=== PATIENT | male | born 1930 | race Caucasian/White ===

== ENCOUNTER 2016-12-11 14:43 | Inpatient (IN) | payer OTHER, BC ==
[~2016-12-11] VITALS: Ht 185.4 cm; Wt 122.6 kg
[~2016-12-11 14:43] MED LIST: COLCHICINE,COL0.6 MG PO; DULCOLAX5 MG PO; K-DUR10 ME2 PO; LASIX40 MG PO; LEVOTHROID,SY0.05 MG PO; Oyst-Cal D, Oscal W/ PO; SENOKOT S,PE1 TABLET PO; THERAGRAN1 TABLET PO; TOPROL XL100 MG PO; Tylenol Regular Stre PO; Vicodin,Lortab 5/500 PO; ZOCOR20 MG PO
[2016-12-11 16:09] LABS: EOSINOPHIL (%) 1.8 % (0-5); EOSINOPHIL COUNT 0.2 K/uL (0-0.3); HEMATOCRIT 37.2 % (38.0-50.0); IMMATURE GRANULOCYTE (%) 0.7 % (0.0-0.7); IMMATURE GRANULOCYTE COUNT 0.1 K/uL; INSTRUMENT ABS NEUTROPHIL CT 7.5 K/uL; MCH 29.5 PG (29.0-34.0); MCHC 33.6 G/DL (30.0-36.0); MCV 87.7 FL (86-99); MEAN PLAT.VOLUME 10.6 uM^3 (9.0-12.4); MONOCYTE (%) 8.8 % (3-12); MONOCYTE COUNT 0.9 K/uL (0-0.8); NEUTROPHIL (%) 77.8 % (45-76); NEUTROPHIL COUNT 7.5 K/uL (1.8-6.4); PLATELET COUNT 191 K/uL (156-360); RBC DIS.WIDTH-CV 14.3 % (11.8-14.6); RBC DIS.WIDTH-SD 45.6 % (39-53); RED BLOOD COUNT 4.24 M/uL (4.00-5.50); WHITE BLOOD COUNT 9.7 K/uL (4.1-10.2)
[2016-12-11 16:13] LABS: ADD MIUA? YES; BILIRUBIN NEGATIVE; BLOOD MODERATE; COLOR YELLOW ((YELLOW)); GLUCOSE (STRIP) NEGATIVE; KETONES NEGATIVE; LEUKOCYTES LARGE; NITRITE NEGATIVE; PROTEIN (STRIP) NEGATIVE; SPECIFIC GRAVITY 1.008 (1.000-1.030); UROBILINOGEN 0.2 MG/DL (0.2-1.0)
[2016-12-11 16:19] LABS: CHLORIDE 104 mEq/L (99-109); SODIUM 137 mEq/L (136-147)
[2016-12-11 16:20] LABS: GLUCOSE 108 mg/dL (70-99)
[2016-12-11 16:22] LABS: ANION GAP 16 MEQ/L (2-14)
[2016-12-11 16:24] LABS: GFR ESTIMATE (CALCULATED) 7 mL/min/
[2016-12-11 16:25] LABS: BACTERIA RARE /HPF; EPITHELIAL CELLS NONE SEEN /HPF; MUCUS NONE SEEN /LPF; RED BLOOD CELLS 30-40 /HPF (0-5); UNCLASSIFIED CRYSTALS 1+ /HPF; WHITE BLOOD CELLS TNTC /HPF (0-5)
[2016-12-11 16:28] LABS: UREA NITROGEN (BUN) 129 mg/dL (9-23)
[2016-12-11] MEDS ORDERED: LEVO-T50 MCG PO (17:37)
[2016-12-11] MEDS ORDERED: METOPROLOL SUC100 MG PO (17:37)
[2016-12-11] MEDS ORDERED: ZOCOR40 MG PO (17:38)
[2016-12-11] MEDS ORDERED: TYLENOL REGULA325 MG PO (17:38)
[2016-12-11] MEDS ORDERED: OYST-CAL-500500 MG PO (17:39)
[2016-12-11] MEDS ORDERED: K-DUR10 MEQ PO (17:45)
[2016-12-11] MEDS ORDERED: ALLOPURINOL100 MG PO (17:46)
[2016-12-11] MEDS ORDERED: VICODIN 5-3001 EACH PO (17:47)
[2016-12-11 20:21] VITALS: BP 126/56
[2016-12-12] VITALS: BP 121/56
[2016-12-12 03:38] VITALS: BP 98/58
[2016-12-12 07:13] LABS: HEMATOCRIT 35.4 % (38.0-50.0); MCH 30.2 PG (29.0-34.0); MCHC 33.1 G/DL (30.0-36.0); MCV 91.2 FL (86-99); MEAN PLAT.VOLUME 10.6 uM^3 (9.0-12.4); PLATELET COUNT 170 K/uL (156-360); RBC DIS.WIDTH-CV 14.3 % (11.8-14.6); RED BLOOD COUNT 3.88 M/uL (4.00-5.50); WHITE BLOOD COUNT 7.7 K/uL (4.1-10.2)
[2016-12-12 07:47] LABS: ANION GAP 17 MEQ/L (2-14); CHLORIDE 106 MEQ/L (99-109); GFR ESTIMATE (CALCULATED) 8 mL/min/; GLUCOSE 88 mg/dL (70-99); POTASSIUM 4.3 MEQ/L (3.7-5.4); SAMPLE HEMOLYSIS CHECK 0; SAMPLE ICTERIC CHECK 0; SAMPLE LIPEMIA CHECK 0; SODIUM 141 MEQ/L (136-147)
[2016-12-12 07:50] LABS: UREA NITROGEN (BUN) 124 mg/dL (9-23)
[2016-12-12 07:53] VITALS: BP 122/59
[2016-12-12 16:11] LABS: HEMATOCRIT 29.9 % (38.0-50.0); MCV 90.1 FL (86-99)
[2016-12-12 17:48] VITALS: BP 116/63
[2016-12-12 20:47] VITALS: BP 108/52
[2016-12-12 20:50] VITALS: BP 111/55
[2016-12-13 00:05] VITALS: BP 111/52
[2016-12-13 04:00] VITALS: BP 144/60
[2016-12-13 06:57] VITALS: BP 118/65
[2016-12-13 07:37] LABS: ANION GAP 11 MEQ/L (2-14); CHLORIDE 110 MEQ/L (99-109); GFR ESTIMATE (CALCULATED) 10 mL/min/; MAGNESIUM 2.1 mg/dl (1.3-2.7); POTASSIUM 3.9 MEQ/L (3.7-5.4); SAMPLE HEMOLYSIS CHECK 0; SAMPLE ICTERIC CHECK 0; SAMPLE LIPEMIA CHECK 0; SODIUM 143 MEQ/L (136-147); UREA NITROGEN (BUN) 100 mg/dL (9-23)
[2016-12-13 07:40] LABS: GLUCOSE 115 mg/dL (70-99)
[2016-12-13 10:10] VITALS: BP 132/63
[2016-12-13 13:26] LABS: EOSINOPHIL (%) 2.6 % (0-5); EOSINOPHIL COUNT 0.2 K/uL (0-0.3); HEMATOCRIT 26.3 % (38.0-50.0); IMMATURE GRANULOCYTE (%) 0.4 % (0.0-0.7); INSTRUMENT ABS NEUTROPHIL CT 5.7 K/uL; LYMPHOCYTE COUNT 1.1 K/uL (1.0-2.8); MCH 30.4 PG (29.0-34.0); MCHC 33.5 G/DL (30.0-36.0); MEAN PLAT.VOLUME 10.7 uM^3 (9.0-12.4); MONOCYTE (%) 8.5 % (3-12); MONOCYTE COUNT 0.7 K/uL (0-0.8); NEUTROPHIL (%) 73.3 % (45-76); NEUTROPHIL COUNT 5.7 K/uL (1.8-6.4); PLATELET COUNT 165 K/uL (156-360); RBC DIS.WIDTH-CV 14.3 % (11.8-14.6); RBC DIS.WIDTH-SD 46.3 % (39-53); RED BLOOD COUNT 2.89 M/uL (4.00-5.50); WHITE BLOOD COUNT 7.8 K/uL (4.1-10.2)
[2016-12-13 15:59] VITALS: BP 99/54
[2016-12-13 20:00] VITALS: BP 110/56
[2016-12-13 20:05] LABS: HEMATOCRIT 25.1 % (38.0-50.0)
[2016-12-14] VITALS (8 sets, daily range): BP systolic 91–111; BP diastolic 51–82
[2016-12-14 06:43] LABS: EOSINOPHIL (%) 3.7 % (0-5); EOSINOPHIL COUNT 0.3 K/uL (0-0.3); HEMATOCRIT 24.1 % (38.0-50.0); IMMATURE GRANULOCYTE (%) 0.7 % (0.0-0.7); IMMATURE GRANULOCYTE COUNT 0.1 K/uL; INSTRUMENT ABS NEUTROPHIL CT 4.6 K/uL; LYMPHOCYTE COUNT 1.2 K/uL (1.0-2.8); MCH 30.1 PG (29.0-34.0); MCHC 33.2 G/DL (30.0-36.0); MCV 90.6 FL (86-99); MEAN PLAT.VOLUME 10.5 uM^3 (9.0-12.4); MONOCYTE (%) 8.2 % (3-12); MONOCYTE COUNT 0.6 K/uL (0-0.8); NEUTROPHIL (%) 69.5 % (45-76); NEUTROPHIL COUNT 4.6 K/uL (1.8-6.4); PLATELET COUNT 160 K/uL (156-360); RBC DIS.WIDTH-CV 14.3 % (11.8-14.6); RED BLOOD COUNT 2.66 M/uL (4.00-5.50); WHITE BLOOD COUNT 6.7 K/uL (4.1-10.2)
[2016-12-14 07:04] LABS: ANION GAP 10 MEQ/L (2-14); CHLORIDE 112 MEQ/L (99-109); GFR ESTIMATE (CALCULATED) 15 mL/min/; GLUCOSE 122 mg/dL (70-99); POTASSIUM 3.9 MEQ/L (3.7-5.4); SAMPLE HEMOLYSIS CHECK 0; SAMPLE ICTERIC CHECK 0; SAMPLE LIPEMIA CHECK 0; SODIUM 145 MEQ/L (136-147); UREA NITROGEN (BUN) 88 mg/dL (9-23)
[2016-12-14 20:06] LABS: HEMATOCRIT 24.3 % (38.0-50.0); MCV 91.4 FL (86-99)
[2016-12-15 03:16] VITALS: BP 91/52
[2016-12-15 09:07] VITALS: BP 133/62
[2016-12-15 13:00] LABS: ANION GAP 11 MEQ/L (2-14); CHLORIDE 110 MEQ/L (99-109); GFR ESTIMATE (CALCULATED) 18 mL/min/; GLUCOSE 137 mg/dL (70-99); POTASSIUM 4.2 MEQ/L (3.7-5.4); SAMPLE HEMOLYSIS CHECK 0; SAMPLE ICTERIC CHECK 0; SAMPLE LIPEMIA CHECK 0; SODIUM 143 MEQ/L (136-147); UREA NITROGEN (BUN) 79 mg/dL (9-23)
[2016-12-15 17:28] VITALS: BP 124/57
[2016-12-15 19:17] VITALS: BP 128/58
[2016-12-15 23:31] VITALS: BP 118/64
[2016-12-16 03:59] VITALS: BP 115/55
[2016-12-16 07:34] LABS: ANION GAP 11 MEQ/L (2-14); CHLORIDE 111 MEQ/L (99-109); GFR ESTIMATE (CALCULATED) 20 mL/min/; GLUCOSE 113 mg/dL (70-99); POTASSIUM 3.9 MEQ/L (3.7-5.4); SAMPLE HEMOLYSIS CHECK 0; SAMPLE ICTERIC CHECK 0; SAMPLE LIPEMIA CHECK 0; SODIUM 143 MEQ/L (136-147); UREA NITROGEN (BUN) 76 mg/dL (9-23)
[2016-12-16 08:30] VITALS: BP 135/93
[2016-12-16 12:00] VITALS: BP 119/84
[2016-12-16 13:08] LABS: HEMATOCRIT 23.1 % (38.0-50.0)
[2016-12-16 17:34] VITALS: BP 126/60
[2016-12-17] VITALS (8 sets, daily range): BP systolic 96–115; BP diastolic 51–73
[2016-12-17 07:00] LABS: ANION GAP 10 MEQ/L (2-14); CHLORIDE 111 MEQ/L (99-109); GFR ESTIMATE (CALCULATED) 22 mL/min/; GLUCOSE 108 mg/dL (70-99); POTASSIUM 3.9 MEQ/L (3.7-5.4); SAMPLE HEMOLYSIS CHECK 0; SAMPLE ICTERIC CHECK 0; SAMPLE LIPEMIA CHECK 0; SODIUM 141 MEQ/L (136-147); UREA NITROGEN (BUN) 72 mg/dL (9-23)
[2016-12-18] VITALS (9 sets, daily range): BP systolic 91–119; BP diastolic 52–70
[2016-12-18 07:09] LABS: EOSINOPHIL (%) 2.8 % (0-5); EOSINOPHIL COUNT 0.2 K/uL (0-0.3); HEMATOCRIT 21.3 % (38.0-50.0); IMMATURE GRANULOCYTE COUNT 0.1 K/uL; INSTRUMENT ABS NEUTROPHIL CT 5.2 K/uL; LYMPHOCYTE COUNT 0.9 K/uL (1.0-2.8); MCH 30.2 PG (29.0-34.0); MCHC 32.9 G/DL (30.0-36.0); MCV 91.8 FL (86-99); MEAN PLAT.VOLUME 10.2 uM^3 (9.0-12.4); MONOCYTE COUNT 0.5 K/uL (0-0.8); NEUTROPHIL (%) 75.3 % (45-76); NEUTROPHIL COUNT 5.2 K/uL (1.8-6.4); PLATELET COUNT 144 K/uL (156-360); RBC DIS.WIDTH-CV 14.8 % (11.8-14.6); RBC DIS.WIDTH-SD 47.8 % (39-53); RED BLOOD COUNT 2.32 M/uL (4.00-5.50); WHITE BLOOD COUNT 6.8 K/uL (4.1-10.2)
[2016-12-18 07:41] LABS: ANION GAP 8 MEQ/L (2-14); CHLORIDE 112 MEQ/L (99-109); GFR ESTIMATE (CALCULATED) 28 mL/min/; GLUCOSE 112 mg/dL (70-99); MAGNESIUM 1.7 mg/dl (1.3-2.7); POTASSIUM 3.6 MEQ/L (3.7-5.4); SAMPLE HEMOLYSIS CHECK 0; SAMPLE ICTERIC CHECK 0; SAMPLE LIPEMIA CHECK 0; SODIUM 143 MEQ/L (136-147); UREA NITROGEN (BUN) 62 mg/dL (9-23)
[2016-12-19 00:21] VITALS: BP 119/55
[2016-12-19 06:35] LABS: EOSINOPHIL (%) 2.5 % (0-5); EOSINOPHIL COUNT 0.2 K/uL (0-0.3); HEMATOCRIT 23.4 % (38.0-50.0); IMMATURE GRANULOCYTE (%) 1.2 % (0.0-0.7); IMMATURE GRANULOCYTE COUNT 0.1 K/uL; INSTRUMENT ABS NEUTROPHIL CT 5.1 K/uL; MCH 30.6 PG (29.0-34.0); MCHC 32.9 G/DL (30.0-36.0); MCV 92.9 FL (86-99); MEAN PLAT.VOLUME 10.4 uM^3 (9.0-12.4); MONOCYTE (%) 7.2 % (3-12); MONOCYTE COUNT 0.5 K/uL (0-0.8); NEUTROPHIL (%) 73.7 % (45-76); NEUTROPHIL COUNT 5.1 K/uL (1.8-6.4); PLATELET COUNT 139 K/uL (156-360); RBC DIS.WIDTH-CV 15.4 % (11.8-14.6); RBC DIS.WIDTH-SD 50.1 % (39-53); RED BLOOD COUNT 2.52 M/uL (4.00-5.50); WHITE BLOOD COUNT 6.9 K/uL (4.1-10.2)
[2016-12-19 07:01] LABS: ANION GAP 9 MEQ/L (2-14); CHLORIDE 113 MEQ/L (99-109); GFR ESTIMATE (CALCULATED) 29 mL/min/; GLUCOSE 103 mg/dL (70-99); MAGNESIUM 1.7 mg/dl (1.3-2.7); POTASSIUM 3.9 MEQ/L (3.7-5.4); SAMPLE HEMOLYSIS CHECK 0; SAMPLE ICTERIC CHECK 0; SAMPLE LIPEMIA CHECK 0; SODIUM 142 MEQ/L (136-147); UREA NITROGEN (BUN) 56 mg/dL (9-23)
[2016-12-19 07:08] VITALS: BP 109/51
[2016-12-19 11:00] VITALS: BP 112/61
[2016-12-19 16:25] VITALS: BP 103/52
[2016-12-19 19:50] VITALS: BP 113/57
[2016-12-19 23:25] VITALS: BP 116/57
[2016-12-20 04:00] VITALS: BP 116/62
[2016-12-20 07:11] VITALS: BP 112/52
[2016-12-20 09:18] LABS: EOSINOPHIL (%) 2.7 % (0-5); EOSINOPHIL COUNT 0.2 K/uL (0-0.3); HEMATOCRIT 26.9 % (38.0-50.0); IMMATURE GRANULOCYTE (%) 0.7 % (0.0-0.7); IMMATURE GRANULOCYTE COUNT 0.1 K/uL; INSTRUMENT ABS NEUTROPHIL CT 6.4 K/uL; LYMPHOCYTE COUNT 0.9 K/uL (1.0-2.8); MCH 29.7 PG (29.0-34.0); MCHC 31.6 G/DL (30.0-36.0); MCV 94.1 FL (86-99); MEAN PLAT.VOLUME 9.9 uM^3 (9.0-12.4); MONOCYTE (%) 5.9 % (3-12); MONOCYTE COUNT 0.5 K/uL (0-0.8); NEUTROPHIL (%) 79.3 % (45-76); NEUTROPHIL COUNT 6.4 K/uL (1.8-6.4); PLATELET COUNT 193 K/uL (156-360); RBC DIS.WIDTH-CV 15.8 % (11.8-14.6); RBC DIS.WIDTH-SD 50.8 % (39-53); RED BLOOD COUNT 2.86 M/uL (4.00-5.50)
[2016-12-20 09:36] LABS: ANION GAP 5 MEQ/L (2-14); CHLORIDE 109 MEQ/L (99-109); GFR ESTIMATE (CALCULATED) 29 mL/min/; GLUCOSE 148 mg/dL (70-99); POTASSIUM 4.1 MEQ/L (3.7-5.4); SAMPLE HEMOLYSIS CHECK 0; SAMPLE ICTERIC CHECK 0; SAMPLE LIPEMIA CHECK 0; SODIUM 141 MEQ/L (136-147); UREA NITROGEN (BUN) 48 mg/dL (9-23)
[2016-12-20 10:40] VITALS: BP 113/57
[2016-12-20] MEDS ORDERED: METOPROLOL SUCC25 MG PO (11:20)
[2016-12-20] MEDS ORDERED: TAMSULOSIN HCL0.4 MG PO (11:20)
[2016-12-20] MEDS ORDERED: HYDROCODON-ACE1 EAC7 PO (11:22)
[2016-12-20 16:12] VITALS: BP 104/54
== END 2016-12-20 18:25 | DRG 683 ==
LOC: EME 14:43 → 5EAST 16:48 → EDOF 16:48 → 5EAST 19:44
PROVIDERS: Emergency Medicine; Internal Medicine; Internal Medicine Nephrology
PROC: 0T9B70Z Drainage of Bladder with Drainage Device, Via Natural or Artificial Opening (ICD-10-PCS; principal; 2016-12-12)
PROC: 3E1K78Z Irrigation of Genitourinary Tract using Irrigating Substance, Via Natural or Artificial Opening (ICD-10-PCS; principal; 2016-12-12)
PROC: 30233N1 Transfusion of Nonautologous Red Blood Cells into Peripheral Vein, Percutaneous Approach (ICD-10-PCS; 2016-12-17)
DX: N17.0 Acute kidney failure with tubular necrosis (principal); D62 Acute posthemorrhagic anemia; I12.9 Hypertensive chronic kidney disease with stage 1 through stage 4 chronic kidney disease, or unspecified chronic kidney disease; N18.3 Chronic kidney disease, stage 3 (moderate); N39.0 Urinary tract infection, site not specified; R31.0 Gross hematuria; N40.1 Benign prostatic hyperplasia with lower urinary tract symptoms; R33.8 Other retention of urine; N13.30 Unspecified hydronephrosis; N13.8 Other obstructive and reflux uropathy; N32.89 Other specified disorders of bladder; R39.15 Urgency of urination; I95.9 Hypotension, unspecified; R60.0 Localized edema; R60.1 Generalized edema; R25.1 Tremor, unspecified; E03.9 Hypothyroidism, unspecified; E78.2 Mixed hyperlipidemia; M10.9 Gout, unspecified; M16.12 Unilateral primary osteoarthritis, left hip; E66.9 Obesity, unspecified; Z68.33 Body mass index [BMI] 33.0-33.9, adult; Z96.651 Presence of right artificial knee joint; Z96.641 Presence of right artificial hip joint; Z87.891 Personal history of nicotine dependence
CPT/HCPCS: 73502; 74176; 80048; 80069; 81003; 82948; 83735; 84100; 85014; 85018; 85025; 85027; 86880; 86900; 86901; 86920; 87086; 93005; 94760; 94799; 97530 GO; 97530 GP; 99281; 99285; J0696; J0881; J1644; J7030; J7050; P9016

== ENCOUNTER 2017-01-16 07:56 | Inpatient (IN) | payer OTHER, BC ==
[~2017-01-16] VITALS: Ht 185.4 cm; Wt 106.7 kg
[~2017-01-16 07:56] MED LIST changes: +ALLOPURINOL100 MG PO; +HYDROCODON-ACE1 EAC7 PO; +K-DUR10 MEQ PO; +LEVO-T50 MCG PO; +METOPROLOL SUC100 MG PO; +METOPROLOL SUCC25 MG PO; +OYST-CAL-500500 MG PO; +TAMSULOSIN HCL0.4 MG PO; +TYLENOL REGULA325 MG PO; +VICODIN 5-3001 EACH PO; +ZOCOR40 MG PO
[2017-01-16 08:43] LABS: CREATININE 2.4 mg/dL (0.6-1.3); POTASSIUM 3.6 mEq/L (3.7-5.4)
[2017-01-16 09:13] LABS: ADD MIUA? YES; BILIRUBIN NEGATIVE; BLOOD LARGE; GLUCOSE (STRIP) NEGATIVE; KETONES NEGATIVE; LEUKOCYTES LARGE; NITRITE NEGATIVE; PROTEIN (STRIP) 30; SPECIFIC GRAVITY 1.006 (1.000-1.030); UROBILINOGEN 0.2 MG/DL (0.2-1.0)
[2017-01-16 09:13] LABS: EOSINOPHIL (%) 1.7 % (0-5); EOSINOPHIL COUNT 0.1 K/uL (0-0.3); HEMATOCRIT 25.2 % (38.0-50.0); IMMATURE GRANULOCYTE (%) 0.9 % (0.0-0.7); IMMATURE GRANULOCYTE COUNT 0.1 K/uL; LYMPHOCYTE COUNT 1.4 K/uL (1.0-2.8); MCH 27.6 PG (29.0-34.0); MCHC 31.7 G/DL (30.0-36.0); MCV 86.9 FL (86-99); MEAN PLAT.VOLUME 10.9 uM^3 (9.0-12.4); MONOCYTE COUNT 0.5 K/uL (0-0.8); NEUTROPHIL (%) 73.8 % (45-76); PLATELET COUNT 161 K/uL (156-360); RBC DIS.WIDTH-CV 14.7 % (11.8-14.6); RBC DIS.WIDTH-SD 46.5 % (39-53); WHITE BLOOD COUNT 8.1 K/uL (4.1-10.2)
[2017-01-16 09:14] LABS: COLOR LT YELLOW ((YELLOW))
[2017-01-16 09:15] LABS: CHLORIDE 103 mEq/L (99-109); POTASSIUM 3.8 mEq/L (3.7-5.4); SODIUM 142 mEq/L (136-147)
[2017-01-16 09:16] LABS: MAGNESIUM 1.4 mg/dL (1.3-2.7)
[2017-01-16 09:18] LABS: GLUCOSE 116 mg/dL (70-99)
[2017-01-16 09:19] LABS: ANION GAP 11 MEQ/L (2-14); TOTAL BILIRUBIN 0.4 mg/dL (0.0-1.0)
[2017-01-16 09:21] LABS: ALKALINE PHOSPHATASE 101 IU/L (3-129); GFR ESTIMATE (CALCULATED) 26 mL/min/
[2017-01-16 09:22] LABS: UREA NITROGEN (BUN) 58 mg/dL (9-23)
[2017-01-16 09:24] LABS: BACTERIA RARE /HPF; EPITHELIAL CELLS NONE SEEN /HPF; HYALINE CASTS 0-5 /LPF; MUCUS TRACE /LPF; RED BLOOD CELLS TNTC /HPF (0-5); UCUL ADDED? YES; WHITE BLOOD CELLS TNTC /HPF (0-5); WHITE BLOOD CELLS CLUMP FEW /HPF (0-5)
[2017-01-16 09:28] LABS: TROP-I INTERPRETATION NEGATIVE; TROPONIN-I < 0.01 ng/mL (0.0-0.30)
[2017-01-16] MEDS ORDERED: LEVOTHYROXINE50 MCG PO (15:29)
[2017-01-16] MEDS ORDERED: TAMSULOSIN HCL0.4 MG PO (15:34)
[2017-01-16] MEDS ORDERED: METOPROLOL SUCC25 MG PO (15:34)
[2017-01-16] MEDS ORDERED: ATORVASTATIN CA20 MG PO (15:35)
[2017-01-16] MEDS ORDERED: LASIX80 MG PO (15:36)
[2017-01-16] MEDS ORDERED: POTASSIUM CHLO10 ME3 PO (15:38)
[2017-01-16] MEDS ORDERED: FLORASTOR250 MG PO (15:38)
[2017-01-16] MEDS ORDERED: COLCRYS0.6 MG PO (15:38)
[2017-01-16] MEDS ORDERED: HYDROCODON-ACE1 EAC7 PO (15:40)
[2017-01-16] MEDS ORDERED: MILK OF MAGN PO (15:41)
[2017-01-16] MEDS ORDERED: DULCOLAX10 MG PR (15:41)
[2017-01-16 16:45] LABS: Estimated Average Glucose 108 mg/dL (70-123); HEMOGLOBIN A1c (GLYCOHEMOGLOB) 5.4 % HGB (Below 5.7)
[2017-01-16 17:10] LABS: HDL CHOLESTEROL 17 MG/DL (Desirable>=40); LDL CHOLESTEROL 54 mg/dL (Desirable<100); NON-HDL CHOLESTEROL 76 mg/dL (Desirable<160); TOTAL CHOLESTEROL 93 mg/dL (Desirable<200); TRIGLYCERIDES 110 MG/DL (Normal: <150)
[2017-01-16 21:48] VITALS: BP 140/70
[2017-01-17] VITALS: BP 140/80
[2017-01-17 06:21] LABS: HEMATOCRIT 30.8 % (38.0-50.0); MCH 27.8 PG (29.0-34.0); MCHC 31.2 G/DL (30.0-36.0); MCV 89.3 FL (86-99); MEAN PLAT.VOLUME 10.8 uM^3 (9.0-12.4); PLATELET COUNT 150 K/uL (156-360); RBC DIS.WIDTH-CV 15.1 % (11.8-14.6); RBC DIS.WIDTH-SD 49.3 % (39-53); RED BLOOD COUNT 3.45 M/uL (4.00-5.50); WHITE BLOOD COUNT 8.2 K/uL (4.1-10.2)
[2017-01-17 07:40] LABS: ANION GAP 11 MEQ/L (2-14); CHLORIDE 106 MEQ/L (99-109); GFR ESTIMATE (CALCULATED) 29 mL/min/; GLUCOSE 103 mg/dL (70-99); POTASSIUM 3.8 MEQ/L (3.7-5.4); SAMPLE HEMOLYSIS CHECK 0; SAMPLE ICTERIC CHECK 0; SAMPLE LIPEMIA CHECK 0; SODIUM 145 MEQ/L (136-147); UREA NITROGEN (BUN) 52 mg/dL (9-23)
[2017-01-17 07:50] VITALS: BP 118/58
[2017-01-17 12:07] VITALS: BP 111/56
[2017-01-17 15:37] VITALS: BP 143/60
[2017-01-17 19:43] VITALS: BP 97/52
[2017-01-17 23:43] VITALS: BP 114/70
[2017-01-18 04:26] VITALS: BP 90/52
[2017-01-18 06:09] LABS: EOSINOPHIL COUNT 0.2 K/uL (0-0.3); HEMATOCRIT 26.6 % (38.0-50.0); IMMATURE GRANULOCYTE (%) 0.8 % (0.0-0.7); IMMATURE GRANULOCYTE COUNT 0.1 K/uL; INSTRUMENT ABS NEUTROPHIL CT 5.2 K/uL; LYMPHOCYTE COUNT 1.5 K/uL (1.0-2.8); MCH 27.5 PG (29.0-34.0); MCHC 31.2 G/DL (30.0-36.0); MCV 88.1 FL (86-99); MEAN PLAT.VOLUME 9.9 uM^3 (9.0-12.4); MONOCYTE (%) 8.3 % (3-12); MONOCYTE COUNT 0.6 K/uL (0-0.8); NEUTROPHIL (%) 68.5 % (45-76); NEUTROPHIL COUNT 5.2 K/uL (1.8-6.4); PLATELET COUNT 158 K/uL (156-360); RBC DIS.WIDTH-CV 15.3 % (11.8-14.6); RED BLOOD COUNT 3.02 M/uL (4.00-5.50); WHITE BLOOD COUNT 7.6 K/uL (4.1-10.2)
[2017-01-18 06:37] LABS: ANION GAP 8 MEQ/L (2-14); CHLORIDE 104 MEQ/L (99-109); GFR ESTIMATE (CALCULATED) 28 mL/min/; GLUCOSE 110 mg/dL (70-99); POTASSIUM 3.8 MEQ/L (3.7-5.4); SAMPLE HEMOLYSIS CHECK 0; SAMPLE ICTERIC CHECK 0; SAMPLE LIPEMIA CHECK 0; SODIUM 141 MEQ/L (136-147); UREA NITROGEN (BUN) 59 mg/dL (9-23)
[2017-01-18 09:02] VITALS: BP 156/98
[2017-01-18 12:10] VITALS: BP 112/51
[2017-01-18 15:40] VITALS: BP 126/61
[2017-01-18 20:00] VITALS: BP 117/67
[2017-01-18 23:48] VITALS: BP 97/50
[2017-01-19 03:40] VITALS: BP 90/48
[2017-01-19 06:21] LABS: EOSINOPHIL (%) 3.5 % (0-5); EOSINOPHIL COUNT 0.2 K/uL (0-0.3); HEMATOCRIT 25.6 % (38.0-50.0); IMMATURE GRANULOCYTE (%) 0.7 % (0.0-0.7); LYMPHOCYTE COUNT 1.3 K/uL (1.0-2.8); MCH 27.2 PG (29.0-34.0); MCHC 31.3 G/DL (30.0-36.0); MCV 87.1 FL (86-99); MEAN PLAT.VOLUME 10.6 uM^3 (9.0-12.4); MONOCYTE (%) 7.2 % (3-12); MONOCYTE COUNT 0.4 K/uL (0-0.8); NEUTROPHIL (%) 66.7 % (45-76); PLATELET COUNT 154 K/uL (156-360); RBC DIS.WIDTH-CV 15.2 % (11.8-14.6); RBC DIS.WIDTH-SD 48.7 % (39-53); RED BLOOD COUNT 2.94 M/uL (4.00-5.50)
[2017-01-19 06:58] LABS: ANION GAP 10 MEQ/L (2-14); CHLORIDE 102 MEQ/L (99-109); GFR ESTIMATE (CALCULATED) 24 mL/min/; GLUCOSE 103 mg/dL (70-99); POTASSIUM 3.8 MEQ/L (3.7-5.4); SAMPLE HEMOLYSIS CHECK 0; SAMPLE ICTERIC CHECK 0; SAMPLE LIPEMIA CHECK 0; SODIUM 139 MEQ/L (136-147); UREA NITROGEN (BUN) 64 mg/dL (9-23)
[2017-01-19 08:08] VITALS: BP 101/50
[2017-01-19 08:59] VITALS: BP 116/65
[2017-01-19 11:56] VITALS: BP 106/51
[2017-01-19 16:16] VITALS: BP 134/65
[2017-01-19 19:05] VITALS: BP 107/58
[2017-01-20] VITALS: BP 105/54
[2017-01-20 04:00] VITALS: BP 117/58
[2017-01-20 05:45] LABS: EOSINOPHIL (%) 2.7 % (0-5); EOSINOPHIL COUNT 0.2 K/uL (0-0.3); HEMATOCRIT 25.8 % (38.0-50.0); IMMATURE GRANULOCYTE (%) 0.5 % (0.0-0.7); INSTRUMENT ABS NEUTROPHIL CT 3.8 K/uL; MCH 26.8 PG (29.0-34.0); MCV 86.3 FL (86-99); MEAN PLAT.VOLUME 10.4 uM^3 (9.0-12.4); MONOCYTE (%) 8.8 % (3-12); MONOCYTE COUNT 0.5 K/uL (0-0.8); NEUTROPHIL (%) 69.5 % (45-76); NEUTROPHIL COUNT 3.8 K/uL (1.8-6.4); PLATELET COUNT 153 K/uL (156-360); RBC DIS.WIDTH-CV 15.3 % (11.8-14.6); RBC DIS.WIDTH-SD 48.6 % (39-53); RED BLOOD COUNT 2.99 M/uL (4.00-5.50); WHITE BLOOD COUNT 5.5 K/uL (4.1-10.2)
[2017-01-20 06:12] LABS: ANION GAP 8 MEQ/L (2-14); CHLORIDE 103 MEQ/L (99-109); GFR ESTIMATE (CALCULATED) 25 mL/min/; GLUCOSE 107 mg/dL (70-99); POTASSIUM 3.7 MEQ/L (3.7-5.4); SAMPLE HEMOLYSIS CHECK 0; SAMPLE ICTERIC CHECK 0; SAMPLE LIPEMIA CHECK 0; SODIUM 140 MEQ/L (136-147); UREA NITROGEN (BUN) 65 mg/dL (9-23)
[2017-01-20 07:35] VITALS: BP 112/65
[2017-01-20 11:14] VITALS: BP 127/69
[2017-01-20] MEDS ORDERED: CEFEPIME HCL1 GM IM (13:10)
[2017-01-20] MEDS ORDERED: GABAPENTIN100 MG PO (13:11)
== END 2017-01-20 15:48 | DRG 73 ==
LOC: EME 07:56 → 5SOUTH 14:58 → EDOF 14:58 → 5SOUTH 20:32
PROVIDERS: Emergency Medicine; Internal Medicine; Physician Assistant
PROC: 30233N1 Transfusion of Nonautologous Red Blood Cells into Peripheral Vein, Percutaneous Approach (ICD-10-PCS; principal; 2017-01-16)
DX: G62.9 Polyneuropathy, unspecified (principal); N17.9 Acute kidney failure, unspecified; J96.01 Acute respiratory failure with hypoxia; E87.70 Fluid overload, unspecified; I95.9 Hypotension, unspecified; N39.0 Urinary tract infection, site not specified; B96.5 Pseudomonas (aeruginosa) (mallei) (pseudomallei) as the cause of diseases classified elsewhere; E83.51 Hypocalcemia; E86.1 Hypovolemia; L89.612 Pressure ulcer of right heel, stage 2; L89.622 Pressure ulcer of left heel, stage 2; S81.801A Unspecified open wound, right lower leg, initial encounter; R25.3 Fasciculation; E78.5 Hyperlipidemia, unspecified; E03.9 Hypothyroidism, unspecified; G50.0 Trigeminal neuralgia; I12.9 Hypertensive chronic kidney disease with stage 1 through stage 4 chronic kidney disease, or unspecified chronic kidney disease; N18.9 Chronic kidney disease, unspecified; D63.1 Anemia in chronic kidney disease; J98.11 Atelectasis; M10.9 Gout, unspecified; N40.1 Benign prostatic hyperplasia with lower urinary tract symptoms; R33.8 Other retention of urine; M19.90 Unspecified osteoarthritis, unspecified site; Z96.641 Presence of right artificial hip joint; E66.01 Morbid (severe) obesity due to excess calories; Z68.31 Body mass index [BMI] 31.0-31.9, adult; Z87.891 Personal history of nicotine dependence
CPT/HCPCS: 36415; 70450; 70486; 70551; 71010; 80047; 80048; 80053; 80061; 80069; 81003; 82272; 82310; 82330; 83036; 83605; 83735; 84100; 84484; 85025; 85025 91; 85027; 86900; 86901; 86920; 87040; 87077; 87086; 87186; 92610 GN; 93005; 93880; 94799; 97530 GP; 99281; 99285; J0610; J0692; J0696; J0881; J1644; J1940; J1956; J2060; J3010; J7030; J7050

== ENCOUNTER 2017-02-02 10:38 | Emergency (ER) | payer OTHER ==
[~2017-02-02] VITALS: Ht 188 cm; Wt 119.2 kg
[~2017-02-02 10:38] MED LIST changes: +ATORVASTATIN CA20 MG PO; +CEFEPIME HCL1 GM IM; +COLCRYS0.6 MG PO; +DULCOLAX10 MG PR; +FLORASTOR250 MG PO; +GABAPENTIN100 MG PO; +LASIX80 MG PO; +LEVOTHYROXINE50 MCG PO; +MILK OF MAGN PO; +POTASSIUM CHLO10 ME3 PO
[2017-02-02 11:31] LABS: EOSINOPHIL (%) 2.3 % (0-5); EOSINOPHIL COUNT 0.1 K/uL (0-0.3); HEMATOCRIT 25.6 % (38.0-50.0); IMMATURE GRANULOCYTE COUNT 0.1 K/uL; INSTRUMENT ABS NEUTROPHIL CT 3.3 K/uL; LYMPHOCYTE COUNT 1.1 K/uL (1.0-2.8); MCH 26.4 PG (29.0-34.0); MCHC 31.3 G/DL (30.0-36.0); MCV 84.5 FL (86-99); MEAN PLAT.VOLUME 9.8 uM^3 (9.0-12.4); MONOCYTE COUNT 0.6 K/uL (0-0.8); NEUTROPHIL (%) 63.1 % (45-76); NEUTROPHIL COUNT 3.3 K/uL (1.8-6.4); PLATELET COUNT 189 K/uL (156-360); RBC DIS.WIDTH-CV 16.2 % (11.8-14.6); RBC DIS.WIDTH-SD 49.8 % (39-53); RED BLOOD COUNT 3.03 M/uL (4.00-5.50); WHITE BLOOD COUNT 5.2 K/uL (4.1-10.2)
[2017-02-02 11:40] LABS: CHLORIDE 109 mEq/L (99-109); SODIUM 143 mEq/L (136-147)
[2017-02-02 11:42] LABS: GLUCOSE 123 mg/dL (70-99)
[2017-02-02 11:43] LABS: ANION GAP 10 MEQ/L (2-14)
[2017-02-02 11:46] LABS: GFR ESTIMATE (CALCULATED) 30 mL/min/; UREA NITROGEN (BUN) 87 mg/dL (9-23)
[2017-02-02 11:52] LABS: TROP-I INTERPRETATION NEGATIVE; TROPONIN-I 0.02 ng/mL (0.0-0.30)
[2017-02-02 11:57] LABS: ADD MIUA? YES; BILIRUBIN NEGATIVE; BLOOD MODERATE; COLOR YELLOW ((YELLOW)); GLUCOSE (STRIP) NEGATIVE; KETONES NEGATIVE; LEUKOCYTES SMALL; NITRITE NEGATIVE; PROTEIN (STRIP) NEGATIVE; SPECIFIC GRAVITY 1.008 (1.000-1.030); UROBILINOGEN 0.2 MG/DL (0.2-1.0)
[2017-02-02 12:04] LABS: BACTERIA RARE /HPF; CALCIUM OXALATE CRYSTALS 2+ /HPF; EPITHELIAL CELLS RARE /HPF; MUCUS TRACE /LPF; RED BLOOD CELLS 30-40 /HPF (0-5); UCUL ADDED? YES
[2017-02-02 13:55] LABS: IRON 12 MCG/DL (35-150); SAMPLE HEMOLYSIS CHECK 0; SAMPLE ICTERIC CHECK 0; SAMPLE LIPEMIA CHECK 0
[2017-02-02 14:35] VITALS: BP 118/46
== END 2017-02-02 14:35 ==
LOC: EME 10:38
PROVIDERS: Emergency Medicine
DX: I13.0 Hypertensive heart and chronic kidney disease with heart failure and stage 1 through stage 4 chronic kidney disease, or unspecified chronic kidney disease (principal); I50.9 Heart failure, unspecified; N18.9 Chronic kidney disease, unspecified; R60.0 Localized edema; D63.1 Anemia in chronic kidney disease; J98.11 Atelectasis; I44.0 Atrioventricular block, first degree; E03.9 Hypothyroidism, unspecified; E78.5 Hyperlipidemia, unspecified
CPT/HCPCS: 71020; 80048; 81003; 83540; 83880; 84466; 84484; 85025; 87086; 93005; 99281; 99285; J0881

== ENCOUNTER 2017-02-04 17:38 | Inpatient (IN) | payer OTHER ==
[~2017-02-04] VITALS: Ht 185.4 cm; Wt 115.2 kg
[2017-02-04 18:41] LABS: EOSINOPHIL (%) 2.4 % (0-5); EOSINOPHIL COUNT 0.2 K/uL (0-0.3); HEMATOCRIT 29.4 % (38.0-50.0); IMMATURE GRANULOCYTE (%) 0.9 % (0.0-0.7); IMMATURE GRANULOCYTE COUNT 0.1 K/uL; INSTRUMENT ABS NEUTROPHIL CT 5.4 K/uL; LYMPHOCYTE COUNT 1.3 K/uL (1.0-2.8); MCH 26.7 PG (29.0-34.0); MCHC 31.3 G/DL (30.0-36.0); MCV 85.2 FL (86-99); MONOCYTE (%) 7.3 % (3-12); MONOCYTE COUNT 0.6 K/uL (0-0.8); NEUTROPHIL (%) 71.9 % (45-76); NEUTROPHIL COUNT 5.4 K/uL (1.8-6.4); PLATELET COUNT 218 K/uL (156-360); RBC DIS.WIDTH-CV 16.2 % (11.8-14.6); RBC DIS.WIDTH-SD 49.9 % (39-53); RED BLOOD COUNT 3.45 M/uL (4.00-5.50); WHITE BLOOD COUNT 7.5 K/uL (4.1-10.2)
[2017-02-04 18:50] LABS: CHLORIDE 107 mEq/L (99-109); POTASSIUM 4.4 mEq/L (3.7-5.4); SODIUM 141 mEq/L (136-147)
[2017-02-04 18:52] LABS: GLUCOSE 140 mg/dL (70-99)
[2017-02-04 18:54] LABS: ANION GAP 17 MEQ/L (2-14)
[2017-02-04 18:56] LABS: GFR ESTIMATE (CALCULATED) 32 mL/min/
[2017-02-04 18:57] LABS: UREA NITROGEN (BUN) 83 mg/dL (9-23)
[2017-02-04 20:52] LABS: ADD MIUA? YES; BILIRUBIN NEGATIVE; BLOOD LARGE; COLOR YELLOW ((YELLOW)); GLUCOSE (STRIP) NEGATIVE; KETONES NEGATIVE; LEUKOCYTES TRACE; NITRITE NEGATIVE; PROTEIN (STRIP) 100; SPECIFIC GRAVITY 1.011 (1.000-1.030); UROBILINOGEN 0.2 MG/DL (0.2-1.0)
[2017-02-04 21:17] LABS: BACTERIA 1+ /HPF; EPITHELIAL CELLS NONE SEEN /HPF; MUCUS RARE /LPF; RED BLOOD CELLS 30-40 /HPF (0-5)
[2017-02-04 22:00] LABS: TROP-I INTERPRETATION NEGATIVE; TROPONIN-I < 0.01 ng/mL (0.0-0.30)
[2017-02-04] MEDS ORDERED: BUMETANIDE1 MG PO (22:37)
[2017-02-04] MEDS ORDERED: THERAGRAN-M PR1 EAC1 PO (22:38)
[2017-02-04] MEDS ORDERED: PROCRIT10000 UNI1 IV (22:47)
[2017-02-04] MEDS ORDERED: SALINE FLUSH 1010 ML IV (22:47)
[2017-02-05 03:24] VITALS: BP 167/59
[2017-02-05 07:34] VITALS: BP 158/76
[2017-02-05 10:49] VITALS: BP 159/56
[2017-02-05 16:05] VITALS: BP 160/60
[2017-02-05 21:05] VITALS: BP 119/60
[2017-02-06 00:49] VITALS: BP 98/53
[2017-02-06 06:07] VITALS: BP 101/52
[2017-02-06 06:34] LABS: EOSINOPHIL COUNT 0.2 K/uL (0-0.3); HEMATOCRIT 26.6 % (38.0-50.0); IMMATURE GRANULOCYTE (%) 0.8 % (0.0-0.7); INSTRUMENT ABS NEUTROPHIL CT 3.3 K/uL; LYMPHOCYTE COUNT 1.3 K/uL (1.0-2.8); MCHC 30.5 G/DL (30.0-36.0); MCV 85.5 FL (86-99); MEAN PLAT.VOLUME 9.6 uM^3 (9.0-12.4); MONOCYTE (%) 8.6 % (3-12); MONOCYTE COUNT 0.5 K/uL (0-0.8); NEUTROPHIL (%) 62.2 % (45-76); NEUTROPHIL COUNT 3.3 K/uL (1.8-6.4); PLATELET COUNT 189 K/uL (156-360); RBC DIS.WIDTH-CV 16.1 % (11.8-14.6); RED BLOOD COUNT 3.11 M/uL (4.00-5.50); WHITE BLOOD COUNT 5.3 K/uL (4.1-10.2)
[2017-02-06 06:59] LABS: ANION GAP 10 MEQ/L (2-14); CHLORIDE 105 MEQ/L (99-109); GFR ESTIMATE (CALCULATED) 34 mL/min/; MAGNESIUM 1.4 mg/dl (1.3-2.7); POTASSIUM 3.8 MEQ/L (3.7-5.4); SAMPLE HEMOLYSIS CHECK 0; SAMPLE ICTERIC CHECK 0; SAMPLE LIPEMIA CHECK 0; SODIUM 143 MEQ/L (136-147); UREA NITROGEN (BUN) 75 mg/dL (9-23)
[2017-02-06 07:07] LABS: GLUCOSE 90 mg/dL (70-99)
[2017-02-06 07:32] VITALS: BP 130/78
[2017-02-06 11:30] VITALS: BP 122/84
[2017-02-06 16:39] VITALS: BP 127/60
[2017-02-07] VITALS (10 sets, daily range): BP systolic 98–130; BP diastolic 49–62
[2017-02-07 05:52] LABS: EOSINOPHIL (%) 3.2 % (0-5); EOSINOPHIL COUNT 0.2 K/uL (0-0.3); HEMATOCRIT 25.4 % (38.0-50.0); IMMATURE GRANULOCYTE (%) 0.9 % (0.0-0.7); IMMATURE GRANULOCYTE COUNT 0.1 K/uL; INSTRUMENT ABS NEUTROPHIL CT 3.5 K/uL; LYMPHOCYTE COUNT 1.5 K/uL (1.0-2.8); MCHC 30.7 G/DL (30.0-36.0); MCV 84.7 FL (86-99); MEAN PLAT.VOLUME 9.7 uM^3 (9.0-12.4); MONOCYTE (%) 7.4 % (3-12); MONOCYTE COUNT 0.4 K/uL (0-0.8); NEUTROPHIL (%) 62.4 % (45-76); NEUTROPHIL COUNT 3.5 K/uL (1.8-6.4); PLATELET COUNT 183 K/uL (156-360); RBC DIS.WIDTH-SD 49.3 % (39-53); WHITE BLOOD COUNT 5.6 K/uL (4.1-10.2)
[2017-02-07 06:30] LABS: ANION GAP 7 MEQ/L (2-14); CHLORIDE 104 MEQ/L (99-109); GFR ESTIMATE (CALCULATED) 30 mL/min/; GLUCOSE 109 mg/dL (70-99); IRON 27 MCG/DL (35-150); POTASSIUM 4.2 MEQ/L (3.7-5.4); SAMPLE HEMOLYSIS CHECK 0; SAMPLE ICTERIC CHECK 0; SAMPLE LIPEMIA CHECK 0; SODIUM 143 MEQ/L (136-147); UREA NITROGEN (BUN) 81 mg/dL (9-23)
[2017-02-08 00:11] VITALS: BP 101/59
[2017-02-08 07:21] VITALS: BP 122/76
[2017-02-08 09:46] LABS: HEMATOCRIT 28.6 % (38.0-50.0); MCH 26.6 PG (29.0-34.0); MCHC 31.1 G/DL (30.0-36.0); MCV 85.6 FL (86-99); MEAN PLAT.VOLUME 9.9 uM^3 (9.0-12.4); PLATELET COUNT 167 K/uL (156-360); RBC DIS.WIDTH-CV 15.9 % (11.8-14.6); RBC DIS.WIDTH-SD 49.5 % (39-53); RED BLOOD COUNT 3.34 M/uL (4.00-5.50); WHITE BLOOD COUNT 5.8 K/uL (4.1-10.2)
[2017-02-08 10:29] LABS: ANION GAP 9 MEQ/L (2-14); CHLORIDE 101 MEQ/L (99-109); GFR ESTIMATE (CALCULATED) 36 mL/min/; GLUCOSE 131 mg/dL (70-99); SAMPLE HEMOLYSIS CHECK 0; SAMPLE ICTERIC CHECK 0; SAMPLE LIPEMIA CHECK 0; SODIUM 143 MEQ/L (136-147); UREA NITROGEN (BUN) 80 mg/dL (9-23)
[2017-02-08 16:11] VITALS: BP 129/86
[2017-02-08 23:16] VITALS: BP 122/58
[2017-02-09 07:09] LABS: GFR ESTIMATE (CALCULATED) 32 mL/min/; GLUCOSE 107 mg/dL (70-99); SAMPLE HEMOLYSIS CHECK 0; SAMPLE ICTERIC CHECK 0; SAMPLE LIPEMIA CHECK 0; UREA NITROGEN (BUN) 82 mg/dL (9-23)
[2017-02-09 07:14] LABS: ANION GAP 9 MEQ/L (2-14); CHLORIDE 101 MEQ/L (99-109); SODIUM 142 MEQ/L (136-147)
[2017-02-09 08:37] VITALS: BP 120/57
[2017-02-09 14:21] VITALS: BP 126/74
[2017-02-09 22:55] VITALS: BP 121/67
[2017-02-10 07:09] VITALS: BP 117/56
[2017-02-10 08:56] LABS: HEMATOCRIT 31.6 % (38.0-50.0); MCH 26.4 PG (29.0-34.0); MCHC 30.7 G/DL (30.0-36.0); MCV 85.9 FL (86-99); MEAN PLAT.VOLUME 11.3 uM^3 (9.0-12.4); NRBC (%) 0.3 /100 WBC (0-0); PLATELET COUNT 158 K/uL (156-360); RBC DIS.WIDTH-CV 16.1 % (11.8-14.6); RBC DIS.WIDTH-SD 50.1 % (39-53); RED BLOOD COUNT 3.68 M/uL (4.00-5.50); WHITE BLOOD COUNT 5.9 K/uL (4.1-10.2)
[2017-02-10 09:06] LABS: ANION GAP 9 MEQ/L (2-14); CHLORIDE 101 MEQ/L (99-109); POTASSIUM 3.9 MEQ/L (3.7-5.4); SAMPLE HEMOLYSIS CHECK 0; SAMPLE ICTERIC CHECK 0; SAMPLE LIPEMIA CHECK 0; SODIUM 142 MEQ/L (136-147)
[2017-02-10 09:12] LABS: GFR ESTIMATE (CALCULATED) 32 mL/min/; GLUCOSE 93 mg/dL (70-99); UREA NITROGEN (BUN) 85 mg/dL (9-23)
[2017-02-10 16:09] VITALS: BP 110/51
[2017-02-10 20:41] VITALS: BP 132/78
[2017-02-10 22:40] VITALS: BP 120/57
[2017-02-11 04:00] VITALS: BP 132/78
[2017-02-11 06:25] LABS: HEMATOCRIT 27.8 % (38.0-50.0); MCH 27.2 PG (29.0-34.0); MCHC 31.7 G/DL (30.0-36.0); MCV 85.8 FL (86-99); MEAN PLAT.VOLUME 11.2 uM^3 (9.0-12.4); PLATELET COUNT 160 K/uL (156-360); RBC DIS.WIDTH-CV 16.4 % (11.8-14.6); RBC DIS.WIDTH-SD 50.3 % (39-53); RED BLOOD COUNT 3.24 M/uL (4.00-5.50)
[2017-02-11 07:25] LABS: ANION GAP 8 MEQ/L (2-14); CHLORIDE 100 MEQ/L (99-109); GFR ESTIMATE (CALCULATED) 34 mL/min/; GLUCOSE 97 mg/dL (70-99); POTASSIUM 4.1 MEQ/L (3.7-5.4); SAMPLE HEMOLYSIS CHECK 0; SAMPLE ICTERIC CHECK 0; SAMPLE LIPEMIA CHECK 0; SODIUM 142 MEQ/L (136-147); UREA NITROGEN (BUN) 86 mg/dL (9-23)
[2017-02-11 07:29] VITALS: BP 122/54
[2017-02-11 11:51] VITALS: BP 106/60
[2017-02-11] MEDS ORDERED: K-DUR20 MEQ PO (13:52)
[2017-02-11 15:53] VITALS: BP 132/66
[2017-02-12 00:51] VITALS: BP 129/63
[2017-02-12 06:59] LABS: ANION GAP 7 MEQ/L (2-14); CHLORIDE 102 MEQ/L (99-109); GFR ESTIMATE (CALCULATED) 36 mL/min/; GLUCOSE 84 mg/dL (70-99); POTASSIUM 4.1 MEQ/L (3.7-5.4); SAMPLE HEMOLYSIS CHECK 0; SAMPLE ICTERIC CHECK 0; SAMPLE LIPEMIA CHECK 0; SODIUM 143 MEQ/L (136-147); UREA NITROGEN (BUN) 78 mg/dL (9-23)
[2017-02-12 07:14] VITALS: BP 110/53
[2017-02-12 15:27] VITALS: BP 118/63
[2017-02-13 01:05] VITALS: BP 146/82
[2017-02-13 06:39] LABS: ANION GAP 10 MEQ/L (2-14); CHLORIDE 102 MEQ/L (99-109); GFR ESTIMATE (CALCULATED) 36 mL/min/; POTASSIUM 4.1 MEQ/L (3.7-5.4); SAMPLE HEMOLYSIS CHECK 0; SAMPLE ICTERIC CHECK 0; SAMPLE LIPEMIA CHECK 0; SODIUM 143 MEQ/L (136-147); UREA NITROGEN (BUN) 72 mg/dL (9-23)
[2017-02-13 06:42] LABS: GLUCOSE 110 mg/dL (70-99)
[2017-02-13 06:59] VITALS: BP 105/57
[2017-02-13] MEDS ORDERED: AUGMENTIN500 MG PO (12:18)
== END 2017-02-13 11:45 | DRG 291 ==
LOC: EME 17:38 → 5EAST 02-05 00:39 → EDOF 02-05 00:39 → 5EAST 02-05 00:39 → ENRESERV 02-05 00:42 → 5EAST 02-05 02:20 → ENPENDDIS 02-13 11:15 → 5EAST 02-13 11:45
PROVIDERS: Emergency Medicine; Hospitalist; Internal Medicine; Internal Medicine Nephrology
PROC: 30233N1 Transfusion of Nonautologous Red Blood Cells into Peripheral Vein, Percutaneous Approach (ICD-10-PCS; principal; 2017-02-07)
DX: I13.0 Hypertensive heart and chronic kidney disease with heart failure and stage 1 through stage 4 chronic kidney disease, or unspecified chronic kidney disease (principal); N17.9 Acute kidney failure, unspecified; L89.319 Pressure ulcer of right buttock, unspecified stage; E87.2 Acidosis; I31.3 Pericardial effusion (noninflammatory); E11.22 Type 2 diabetes mellitus with diabetic chronic kidney disease; E88.09 Other disorders of plasma-protein metabolism, not elsewhere classified; F03.90 Unspecified dementia, unspecified severity, without behavioral disturbance, psychotic disturbance, mood disturbance, and anxiety; N39.0 Urinary tract infection, site not specified; E66.9 Obesity, unspecified; I50.33 Acute on chronic diastolic (congestive) heart failure; N18.3 Chronic kidney disease, stage 3 (moderate); D50.9 Iron deficiency anemia, unspecified; I08.3 Combined rheumatic disorders of mitral, aortic and tricuspid valves; M19.90 Unspecified osteoarthritis, unspecified site; E03.9 Hypothyroidism, unspecified; E78.5 Hyperlipidemia, unspecified; R42 Dizziness and giddiness; Z68.33 Body mass index [BMI] 33.0-33.9, adult; L89.619 Pressure ulcer of right heel, unspecified stage; L89.629 Pressure ulcer of left heel, unspecified stage; D63.1 Anemia in chronic kidney disease; I44.0 Atrioventricular block, first degree; I25.2 Old myocardial infarction; Z87.891 Personal history of nicotine dependence; Z96.641 Presence of right artificial hip joint; R31.0 Gross hematuria; N47.2 Paraphimosis; N40.1 Benign prostatic hyperplasia with lower urinary tract symptoms; R33.8 Other retention of urine; L03.90 Cellulitis, unspecified; R09.02 Hypoxemia; W18.30XA Fall on same level, unspecified, initial encounter; R80.9 Proteinuria, unspecified; M25.511 Pain in right shoulder; M54.2 Cervicalgia; M54.9 Dorsalgia, unspecified; S81.811A Laceration without foreign body, right lower leg, initial encounter; S71.112A Laceration without foreign body, left thigh, initial encounter; M1A.9XX0 Chronic gout, unspecified, without tophus (tophi)
CPT/HCPCS: 70450; 71010; 71020; 72125; 73030; 73502; 76770; 80048; 80069; 81003; 82607; 83540; 83605; 83735; 83880; 84466; 84484; 85025; 85027; 86900; 86901; 86920; 87086; 93005; 93306; 94799; 97530 GP; 99281; 99285; J0692; J0881; J1644; J1940; J3010; J7050; P9016